=== PATIENT | male | born 1985 | race Caucasian/White ===

== ENCOUNTER 2024-05-15 11:30 | Outpatient (REF) | payer MEDICAID, SELFPAY ==
[2024-05-16 09:41] LABS: HBS Num1 15.21 mIU/mL (0-7.99); HBc Num1 0.09 S/CO (0.00-0.79); HBsAGNum1 0.43 S/CO (0.00-0.99); HIV AB/AG Nonreactive (Nonreactive); HIV Num 1 0.06 S/CO (0.00-0.99); Hepatitis A Antibody IgM 0.16 Index (0-0.79); Hepatitis B Core Antibody Nonreactive (Nonreactive); Hepatitis B Surface Antigen Negative (Negative); ~HepC Num1 0.16 S/CO (0.00-0.79); ~Hepatitis A Antibody IgM Nonreactive (Nonreactive); ~Hepatitis B Surface Antibody REACTIVE (Nonreactive); ~Hepatitis C Antibody Nonreactive (Nonreactive)
[2024-05-18 07:23] LABS: RPR Rapid Plasma Reagin NON-REACTIVE (NON-REACTIVE)
== END 2024-05-15 11:31 | disposition home or self-care (01) ==
LOC: HO.HHCL 11:30
PROVIDERS: Visit Provider Internal Medicine
DX: Z11.3 Encounter for screening for infections with a predominantly sexual mode of transmission (principal)
CPT/HCPCS: 36415; 86592; 86704; 86706; 86709; 86803; 87340; 87389

== ENCOUNTER 2024-06-20 09:55 | Outpatient (REF) | payer MEDICAID, SELFPAY ==
[2024-06-20 11:08] LABS: MANUAL DIFF FLAG NO
[2024-06-20 11:20] LABS: Basophils Percent Auto 0.4 % (0-2); Eosinophils Absolute Auto 0.1 X10*3/uL (0.0-0.4); Eosinophils Percent Auto 2.5 % (0-4); Hematocrit 39.9 % (42.0-52.0); Hemoglobin 13.6 g/dl (14.0-18.0); Imm Gran Abs Auto 0.03 X10*3/uL (0.00-0.03); Imm Gran Pct Auto 0.6 % (0.0-0.4); Lymphocytes Absolute Auto 1.5 X10*3/uL (1.2-4.9); Lymphocytes Percent Auto 30.6 % (20-40); Mean Corpuscular HGB Conc 34.1 g/dl (31.0-36.0); Mean Corpuscular Hemoglobin 29.8 pg (27.0-33.0); Mean Corpuscular Volume 87.3 fL (80.0-98.0); Mean Platelet Volume 11.4 fL (9.4-12.4); Monocytes Absolute Auto 0.4 X10*3/uL (0.1-1.2); Monocytes Percent Auto 7.9 % (2-11); Neutrophils Absolute Auto 2.8 x10*3/uL (2.0-8.3); Platelet Count 244 X10*3/uL (160-400); Red Blood Count 4.57 X10*6/uL (4.60-5.80); Red Cell Distribution Width 12.9 % (11.0-16.0); White Blood Count 4.8 X10*3/uL (4.8-10.8)
[2024-06-20 12:08] LABS: Alanine Aminotransferase 24 U/L (0-40); Albumin Level 4.1 g/dL (3.5-5.0); Alkaline Phosphatase 99 U/L (39-117); Anion Gap 8 (12-20); Aspartate Amino Transferase 19 U/L (5-37); Bilirubin Total 0.4 mg/dL (0.0-1.0); Blood Urea Nitrogen 11 mg/dL (9-16); Calcium 9.3 mg/dL (8.4-10.2); Carbon Dioxide 29 mmol/L (22-29); Chloride 106 mmol/L (96-108); Cholesterol 229 mg/dL (<200); Estimated Glomerular Filt Rate > 60; Glucose Random 85 mg/dL (60-115); HDL Cholesterol 42 mg/dL (>40); LDL Cholesterol Calculated 165 mg/dL (<100); Sodium 139 mmol/L (135-145); Total Protein 7.1 g/dL (6.5-8.0); Triglycerides 110 mg/dL (<150)
[2024-06-20 12:27] LABS: Estimated Average Glucose 108 mg/dL; Hemoglobin A1c % 5.4 % (<6.0)
[2024-06-20 14:22] LABS: Reflex LDLD? No
[2024-06-20 14:38] LABS: CT PCR NOT DETECTED (Not Detect.); NG PCR NOT DETECTED (Not Detect.)
== END 2024-06-20 09:56 | disposition home or self-care (01) ==
LOC: HO.HHCL 09:55
PROVIDERS: Visit Provider Internal Medicine
DX: Z00.00 Encounter for general adult medical examination without abnormal findings (principal)
CPT/HCPCS: 36415; 80053; 80061; 83036; 85025; 87491; 87591

== ENCOUNTER 2024-08-25 11:44 | Outpatient (REF) | payer MEDICAID, SELFPAY ==
[2024-08-25 13:42] LABS: MANUAL DIFF FLAG NO
[2024-08-25 13:51] LABS: Basophils Percent Auto 0.5 % (0-2); Eosinophils Absolute Auto 0.1 X10*3/uL (0.0-0.4); Eosinophils Percent Auto 2.3 % (0-4); Hematocrit 41.4 % (42.0-52.0); Hemoglobin 13.9 g/dl (14.0-18.0); Imm Gran Abs Auto 0.03 X10*3/uL (0.00-0.03); Imm Gran Pct Auto 0.5 % (0.0-0.4); Lymphocytes Absolute Auto 1.6 X10*3/uL (1.2-4.9); Lymphocytes Percent Auto 26.2 % (20-40); Mean Corpuscular HGB Conc 33.6 g/dl (31.0-36.0); Mean Corpuscular Hemoglobin 29.4 pg (27.0-33.0); Mean Corpuscular Volume 87.5 fL (80.0-98.0); Mean Platelet Volume 11.4 fL (9.4-12.4); Monocytes Absolute Auto 0.5 X10*3/uL (0.1-1.2); Monocytes Percent Auto 7.8 % (2-11); Neutrophils Absolute Auto 3.8 x10*3/uL (2.0-8.3); Neutrophils Percent Auto 62.7 % (45-73); Platelet Count 269 X10*3/uL (160-400); Red Blood Count 4.73 X10*6/uL (4.60-5.80); Red Cell Distribution Width 12.9 % (11.0-16.0)
[2024-08-25 16:22] LABS: Iron 69 mcg/dL (45-160); Percent Iron Saturation 27 % (15-50); Total Iron Binding Capacity 256 mcg/dL (228-428); Unsaturated Iron Binding 187 ug/dL
[2024-08-25 16:26] LABS: Ferritin 69 ng/mL (20-250)
[2024-08-25 17:09] LABS: Folate 12.6 ng/mL (> or = 4.0); Vitamin B12 486 pg/mL (200-900)
== END 2024-08-25 11:45 | disposition home or self-care (01) ==
LOC: HO.HHCL 11:44
PROVIDERS: Visit Provider Internal Medicine
DX: D64.9 Anemia, unspecified (principal)
CPT/HCPCS: 36415; 82607; 82728; 82746; 83540; 85025

== ENCOUNTER → 2025-05-21 20:30 | Outpatient (REF) | payer MEDICARE, MEDICAID, SELFPAY ==
--- OUTSIDE RECORDS SUMMARY | 2020-06-30 20:00 | XMS_ITS | Continuity of Care Document ---
Author Organization [facility] Address [address] [place] [place] [address] Phone Care Team Providers Care Teacher Preschool Name Role Phone Sandeep Walker OD Unavailable Unavailable Allergies, Adverse Reactions, Alerts Substance Reaction Status Criticality No Known Allergies Active No Inform ation Procedures Procedure Date No Charge OFFICE/OUTPATIENT VISIT, [facility] REFRACTION [place] Special Fit Advance Directives Directive Yes / No Effective Date File Name No Information Encounters Encounter Description Practice Location Reason(s) For Visit Diagnoses Date Provider Providers Copied on Encounter [facility] YANELY, [address], [place], [place], [id number], [place] tel:[phone] [facility] ESDRAS Contacts No Information Aaron Hopkins. [address], [place], [place], [facility], [place]. tel:[phone] [facility], [address], [place], [place], [id number], [place] tel:[phone] [facility] Contact lens followup (chief complaint) No Information Aaron Hopkins. [address], [place], [address], [place]. tel:[phone] OFFICE/OUTPAT IENT VISIT, NEW [facility] YANELY, [address], [place], [place], [id number], [place] tel:[phone] [facility] medical eye exam (chief complaint) Dry eye syndrome of bilateral lacrimal glandsVisual disturbance Aaron Hopkins. [address], [place], [address], [place]. tel:[phone] Family History Family Member Type Diagnosis Age At Onset Problem Family history of hypertensi on Payers Payer name Insurance type Covered republican ID Authoriza tion(s) No Information Social History Type Description Quantity Date Captured Comments Sex Male Smoking Status No Information Chief Complaint And Reason For Visit No Information Reason For Referral Reason For Referral No Information Plan Of Treatment Date Type Action Status Patient Education Health Information for You: MedlinePl~ completed History Of Present Illness Encounter Date Complaint History Of Prese nt Illness Contact lens followup The 35 yea r old male presents for evaluation of Contact lens followup and dilation. He says the while the right CL is comfortable, the left eye is uncomfortable as soon as he puts the lens in, no matter how long it settles. Vision overall in well. medical eye exam The 35 year old male presents for evaluation of medical eye exam and contact evaluation. ALLAN was 3 weeks ago, but he was not satisfied with their CL Fitting services. Was previously a new wearer, but had to be taught by his . He was given Biofinity Toric, but they get dry and uncomfortable after about 4 hours. Vision is well in them. No issues with eye pain or discomfort. Mention headaches, no flashes or floaters. Functional Status Date Functional Assessmen t No Information Instructions Date Instruction Additional Infor fely Return in 3 days wit h Sandeep Walker O.D. for Contact Lens follow-up, and dilate his eyes. Related to Visual disturbance Return in PRN as sym ptoms present. Return in 1 year with Sandeep Walker O.D. for Complete Exam. Related to Dry eye syndrome of bilateral lacrimal glands Impression/Plan Related to Dry e ye syndrome of bilateral lacrimal glands Impression/Plan Related to Visua l disturbance Assessments Type Assessment Date No Information Patient Care Teams Name Effective Dates (start - stop) Status Members No Information
--- OUTSIDE RECORDS SUMMARY | 2025-05-21 22:28 | XMS_ITS | Clinical Summary ---
Author Organization [facility] Address [address] [place] [address] Care Team Providers Care Faucet Polisher Name Role Phone Zeenat Clarke MD Primary Care Provide r Allergies No known active allergies Medications * This document contains information received from the source organization and may not represent a complete record from that organization. ibuprofen (IBU) 800 MG tablet Take 1 tablet by mouth with breakfast, with lunch, and with evening meal. 06/17/20 20 Active chlorhexidine (Periogard) 0.12 % solution Place 15 mL into mouth between cheek and gum after breakfast and after evening meal. place 15 milliliter by mucous membrane route 2 times every day in the mouth (after meals), swish in mouth for 30 seconds then spit out 06/17/20 20 Active albuterol (ProAir HFA) 108 (90 Base) MCG/ACT inhalerIndicatio ns:Mild intermittent asthma, unspecified whether complicated Inhale 2 puffs every 4 (four) hours if needed for shortness of breath. 18 g 1 12/06/19 23 Active QUEtiapine (SEROquel) 50 MG tabletIndication s:Insomnia, unspecified type Take 1 tablet (50 mg) by mouth at bedtime. 90 tablet 1 05/12/20 25 026 Active tretinoin (Retin-A) 0.025 % creamIndications :Other acne Apply topically at bedtime. 45 g 2 05/12/20 25 026 Active QUEtiapine (SEROquel) 50 MG tabletIndication s:Insomnia, unspecified type Take 1 tablet (50 mg) by mouth at bedtime. 90 tablet 1 08/25/20 24 025 Discontinued Active Problems Problem Noted Date Diagnosed Date Loud snoring 05/12/2025 Assessment & Plan (05/12/2025 12:12 PM EDT): Sleep studies are ordered today Other acne 05/12/2025 Dyslipidemia 08/25/2024 Assessment & Plan (05/12/2025 12:11 PM EDT): Counseling about healthy diet and exercise on today Lipid panel will be rechecked Assessment & Plan (08/25/2024 12:24 PM EST): Today extensive discussion was done about life style modifications I advise healthy diet (low calorie) and cardiovascular exercise Anemia 08/25/2024 Assessment & Plan (05/12/2025 12:11 PM EDT): CBC last time checked was noticed to have mild decrease of hemoglobin I will recheck it today with labs Assessment & Plan (08/25/2024 12:24 PM EST): Blood work ordered, patient will be contacted with [facility] maintenance 06/12/2024 PTSD (post-traumatic stress disorder) 05/15/2024 Assessment & Plan (05/12/2025 12:11 PM EDT): Counseling done he will continue with quetiapine 50 mg daily Assessment & Plan (08/25/2024 12:24 PM EST): C/w seroquel 50mg at bed time Assessment & Plan (06/12/2024 2:33 PM EDT): Counseling done [facility] called today I will continue to prescribe Seroquel 50mg daily [place] ordered Letter for emotional support pet will be provided Screening examination for STI 05/15/2024 Assessment & Plan (05/15/2024 12:03 PM EDT): Counseling done Condoms provided Hypersomnia 06/08/2023 Assessment & Plan (05/12/2025 12:11 PM EDT): Sleep study will be ordered today Assessment & Plan (06/08/2023 1:15 PM EDT): Sleep studies ordered today Snores 06/08/2023 Constipation 09/29/2022 Assessment & Plan (12/06/2022 12:47 PM EST): Continue docusate/senna, add Miralax Increase fiber and water intake. Insomnia 09/29/2022 Assessment & Plan (05/12/2025 12:12 PM EDT): Sleep hygiene counseling done I explained to patient 6 to 7 hours of sleep in an adult is a normal time for sleep He may continue with quetiapine 50 mg at bedtime Assessment & Plan (06/08/2023 1:15 PM EDT): We talk about sleep hygrine, no screens before bed time, no caffeine beverages I advise to increase hydroxyzine to 50mg at bed time Assessment & Plan (12/06/2022 12:46 PM EST): DC trazodone. Start mirtazapine 15-30 mg qhs Discussed with him regarding sleep hygiene, decreasing caffeine, recreational substances. FU in 1-2 months. Medical marijuana use 09/29/2022 Mild intermittent asthma 01/28/2018 Assessment & Plan (12/06/2022 12:46 PM EST): Occasional. Use Albuterol PRN. COvid and Influenza IZ are up to date. Encounters Date Type Department Care Team Description 05/12/2025 10:45 AM EDT Office Visit [facility] [address] [place] [address] Zeenat Clarke MD Dyslipidemia (Primary Dx); Insomnia, unspecified type; PTSD (post-traumatic stress disorder); Loud snoring; Hypersomnia; Other acne; Anemia, unspecified type 05/12/2025 Travel 05/11/2025 Telephone [facility] [address] [place] [address] Zeenat Clarke MD Chart Prep 03/03/2025 1:45 PM EDT Office Visit [facility] OPTOMET[facility] [address] [place] [address] Catalino, Charley, OD Regular astigmatism of both eyes (Primary Dx) from Last 3 Months Immunizations Immunization Administration Dates Next Due Hep B, adult 12/06/2022 Influenza injectable quadriv alent preservative free 10/04/2022,12/07/2021,09/18/2016 MMR 12/06/2022 Pfizer Covid-19 Vaccine 12+ Bivalent 10/04/2022 Tdap 09/18/2016 Family History Medical History Relation Name Comments Diabetes Mother Relation Name Status Comments Mother Social History Tobacco Use Types Packs/Day Years Used Date Smoking Tobacco: Never Passive Smoke Exposure: Never Smokeless Tobacco: Never Tobacco Cessation:Counseling Given: Not Answered Alcohol Use Standard Drinks/Week Comments Yes 0 (1 standard drink = 0.6 oz pur e alcohol) Ocacionally Depression Answer Date Recorded Patient Health Questionnaire-9 Score 0 05/12/2025 Patient Health Questionnaire-9 Score 0 05/12/2025 Last PHQ-9: Questionnaire Data Not on file 0 05/12/2025 Housing Stability Answer Date Recorded What is your housing situation today? I have eh katharine 05/12/[address] you li ve. Do you have problems with any of the following? None of the above 05/12/2025 Food Insecurity Answer Date Recorded Within the past 12 months, y ou worried that your food would run out before you got money to buy more: Never True 05/12/2025 Within the past 12 months,th e food you bought just didn't last and you didn't have enough money to get more: Never True Transportation Answer Date Recorded In the past 12 months, has l ack of transportation kept you from medical appts, meetings, work or from getting things needed for daily living? No 05/12/2025 Utilities Answer Date Recorded In the past 12 months, has t he electric, gas, oil or water company threatened to shut off services in your home? No 05/12/2025 Depression Answer Date Recorded Patient Health Questionnaire-2 Score 0 05/12/2025 Internet Access Answer Date Recorded Internet Access Q1 No 05/12/2025 Internet Access Q2 I do not want or need it 04/22 Sex and Gender Information Value Date Recorded Sex Assigned at Male 08/21/2022 10:14 AM EDT Legal Sex Male 10:14 AM EDT Gender Identity Male 08/21/2022 10:14 AM EDT Sexual Orientation Straight 08/21/2022 10 :14 AM EDT Last Filed Vital Signs Vital Sign Reading Time Taken Comments Blood Pressure 124/78 05/12/2025 10:44 AM EDT Pulse 88 05/12/2025 10:44 AM EDT Temperature 36.6 C (97.8 F) 05/12/2025 10:44 AM EDT Respiratory Rate 12 05/12/2025 10:44 AM EDT Oxygen Saturation 99% 05/12/2025 10:44 AM EDT Inhaled Oxygen Concentration - - Weight 75.6 kg (166 lb 9.6 oz) 05/12/2025 10:44 AM EDT Height 157.5 cm (5' 2 ) 05/12/2025 10:44 AM EDT Body Mass Index 30.47 05/12/2025 10:44 AM EDT Plan of Treatment Health Maintenance Due Date Last Done Comments Family Planning (PISQ) 2002 HPV Vaccines (1 - Male 3-dos e series) 2002 Pneumococcal Vaccine: Pediatrics (0 to 5 Years) and At-Risk Patients (6 to 49) Years (1 of 2 - PCV) 2006 Hepatitis B Vaccines (2 of 3 - 19+ 3-dose series) 01/03/2023 12/06/2022 COVID-19 Vaccine (4 - 2023-2 5 season) 2024 10/04/2022, 07/21/2021, 04/05/2021 Influenza Vaccine (#1) 2025 , 12/07/2021, 09/18/2016 Alcohol/Substance Use Screening 05/12/2026 05/12/2025 Depression Screening 05/12/2026 05/12/2025, 05/12/2025 Disability Screening 05/12/2026 05/12/2025 SDOH Screening 05/12/2026 05/12/2025 Tobacco Screening 05/12/2026 05/12/2025 DTaP/Tdap/Td Vaccines (2 - T d or Tdap) 09/18/2026 09/18/2016 Lipid Panel 06/20/2029 06/20/2024, 12/07/2021 Zoster Vaccines (1 of 2) 2037 RSV Patients and Patients Aged 60 years or older (1 - 1-dose 75+ series) 2062 HIV Screening Completed 05/15/2024, 12/07/2021 Hepatitis C Screening Completed 05/15/2024 , 12/07/2021 HIB Vaccines Aged Out No longer eligi ble based on patient's age to complete this topic Hepatitis A Vaccines Aged Out No long er eligible based on patient's age to complete this topic IPV Vaccines Aged Out No longer eligi ble based on patient's age to complete this topic Meningococcal B Vaccine Aged Out No l onger eligible based on patient's age to complete this topic Meningococcal Vaccine Aged Out No sera dominique eligible based on patient's age to complete this topic RSV under 20 months Aged Out No longe r eligible based on patient's age to complete this topic Rotavirus Vaccines Aged Out No longer eligible based on patient's age to complete this topic Procedures Procedure Name Priority Date/Time Associated Diagnosis Comments LIPID PANEL WITH REFLEX TO DIRECT LDL Routine 06/20/2024 10:02 AM EDT Health care maintenance HEPATITIS PANEL, GENERAL Routine 05/15/2024 12:00 AM EDT Screening examination for STI HIV 1/2 ANTIGEN/ANTIBODY, FOURTH GENERATION W/RFL Routine 05/15/2024 12:00 AM EDT Screening examination for STI from Last 3 Months or Most Recently Relevant to Health Maintenance Results * (ABNORMAL) Lipid Panel with Reflex to Direct LDL (06/20/2024 10:02 AM EDT) Triglycerides 110 <150 mg/dL [facility] Comment:Desirable Triglyceri de: less than 150 mg/dLBorderline High Triglyceride 150-199 mg/dLHigh Triglyceride: 200-499 mg/dLVery High Triglyceride: greater than or equal to 5OO mg/dL Cholesterol 229(H) <200 mg/dL [facility] Comment:Desirable Cholestero l: less than 200 mg/dLBorderline High Cholesterol: 200-239 mg/dLHigh Cholesterol: greater than 239 mg/dL LDL Cholesterol Calculated 165(H) <100 mg/dL [facility] Comment:Desirable LDL: less than 100 mg/dLNear Optimal/Above Optimal LDL: 110- 129 mg/dLBorderline High LDL: 130-159 mg/dLHigh LDL: 160-189 mg/dLVery High LDL: greater than or equal to 190 mg/dL HDL Cholesterol 42 >40 mg/dL [facility] Comment:Desirable HDL: great er than 40 mg/dL Note: This HDL assay may give artificially low results in patients with liver disease. Blood 06/20/2024 10:0 2 AM EDT 06/20/2024 11:03 AM EDT us Zeenat Patino MD LAB BLOOD ORDERABLES Final Result Performing Organization Address [facility] Co de Phone Number [facility] [address] [place] [phone] * Hepatitis A,B,C Profile (05/15/2024 12:00 AM EDT) Hepatitis A IgM Nonreactive Nonreactive [facility] Comment:IgM antibodies to GONSALEZ V not detected; does not exclude earlyacute or recovered HAV infection. ~Hepatitis B Surface Antibody REACTIVE Nonreactive [facility] Comment:REACTIVE: > 11.99 mI U/mL Hepatitis B Core Antibody Nonreactive Nonreactive [facility] Hepatitis C Antibody Nonreactive Nonreactive [facility] Comment:Antibodies to HCV no t detected; does not exclude early acuteHCV infection. Hepatitis B Surface Ag Negative Negative [facility] Blood Venous blood specimen / Unknown 05/15/2024 05/15/2024 Zeenat Patino MD LAB BLOOD ORDERABLES Final Result Performing Organization Address [facility] Co de Phone Number [facility] [address] [place] [phone] * HIV-1/2 Antigen and Antibodies, Fourth Generation, with Reflexes (05/15/2024 12:00 AM EDT) HIV AB/AG Nonreactive Nonreactive [facility] Comment:HIV-1 p24 Ag and/or HIV-1/HIV-2 Ab not detected.A test result that is nonreactive does not exclude thepossibility of exposure to or infection with HIV-1 and/orHIV-2. Nonreactive results in this assay for individualswith prior exposure to HIV-1 and/or HIV-2 may be due toantigen and antibody levels that are below the limit ofdetection of this assay.[employer] HIV Ag/Ab Combo assay result andsupplemental assay results should be interpreted inconjunction with the patient's clinical presentation,history and other laboratory results. If the results areinconsistent with clinical evidence, additional testing issuggested to confirm the result. Blood Venous blood specimen / Unknown 05/15/2024 05/15/2024 us Zeenat Patino MD LAB BLOOD ORDERABLES Final Result [facility] [address] [place], [place] [phone] from Last 3 Months or Most Recently Relevant to Health Maintenance Insurance [place] [address] [place] [address] [place] [address] [facility] Care Teams Faucet Polisher Relationship Specialty Start Date End Date Zeenat Clarke MD [address] [place] [phone] PCP - General Family Medicine 10/03/18
== END ==
LOC: HO.SL 20:30
PROVIDERS: PCP Internal Medicine; Visit Provider Internal Medicine
DX: R06.83 Snoring (principal); G47.10 Hypersomnia, unspecified; G47.61 Periodic limb movement disorder; Z79.899 Other long term (current) drug therapy
CPT/HCPCS: 95810

== ENCOUNTER → 2025-05-21 21:00 | Outpatient (BNV) | payer MEDICARE, MEDICAID, SELFPAY | PROVIDERS: PCP Internal Medicine; Visit Provider Internal Medicine | DX: R06.83 Snoring (principal) | CPT/HCPCS: 95810 ==

== ENCOUNTER 2025-05-26 12:28 | Outpatient (REF) | payer MEDICARE, MEDICAID, SELFPAY ==
--- OUTSIDE RECORDS SUMMARY | 2025-05-26 13:03 | XMS_ITS | Clinical Summary ---
Author Organization [facility] [facility] Address [address] [place] [address] Care Team Providers Care Obstetrics Scrub Nurse Name Role Phone Zeenat Clarke MD Primary [...] work ordered, patient will be contacted with [facility] maintenance 06/12/2024 PTSD (post-traumatic stress disorder) [...] Description 05/12/2025 10:45 AM EDT Office Visit [facility] [address] [place] [address] Zeenat Clarke MD Dyslipidemia (Primary Dx); Insomnia, unspecified type; PTSD (post-traumatic stress disorder); Loud snoring; Hypersomnia; Other acne; Anemia, unspecified type 05/12/2025 Travel 05/11/2025 Telephone [facility] [address] [place] [address] Zeenat Clarke MD Chart Prep 03/03/2025 1:45 PM EDT Office Visit [facility] OPTOMETRY [address] [place] [address] Catalino, Charley, OD Regular astigmatism of both [...] 10:02 AM EDT) Triglycerides 110 <150 mg/dL [facility] Comment:Desirable Triglyceri de: less than 150 mg/dLBorderline High Triglyceride 150-199 mg/dLHigh Triglyceride: 200-499 mg/dLVery High Triglyceride: greater than or equal to 5OO mg/dL Cholesterol 229(H) <200 mg/dL [facility] Comment:Desirable Cholestero l: less than 200 mg/dLBorderline High Cholesterol: 200-239 mg/dLHigh Cholesterol: greater than 239 mg/dL LDL Cholesterol Calculated 165(H) <100 mg/dL [facility] Comment:Desirable LDL: less than 100 mg/dLNear Optimal/Above Optimal LDL: 110- 129 mg/dLBorderline High LDL: 130-159 mg/dLHigh LDL: 160-189 mg/dLVery High LDL: greater than or equal to 190 mg/dL HDL Cholesterol 42 >40 mg/dL [facility] Comment:Desirable HDL: great er than 40 mg/dL Note: This HDL assay may give artificially low results in patients with liver disease. Blood 06/20/2024 10:0 2 AM EDT 06/20/2024 11:03 AM EDT us Zeenat Patino MD LAB BLOOD ORDERABLES Final Result Performing Organization Address [facility] Co de Phone Number [facility] [address] [place] [phone] * Hepatitis A,B,C Profile (05/15/2024 12:00 AM EDT) Hepatitis A IgM Nonreactive Nonreactive [facility] Comment:IgM antibodies to GONSALEZ V not detected; does not exclude earlyacute or recovered HAV infection. ~Hepatitis B Surface Antibody REACTIVE Nonreactive [facility] Comment:REACTIVE: > 11.99 mI U/mL Hepatitis B Core Antibody Nonreactive Nonreactive [facility] Hepatitis C Antibody Nonreactive Nonreactive [facility] Comment:Antibodies to HCV no t detected; does not exclude early acuteHCV infection. Hepatitis B Surface Ag Negative Negative [facility] Blood Venous blood specimen / Unknown 05/15/2024 05/15/2024 Zeenat Patino MD LAB BLOOD ORDERABLES Final Result Performing Organization Address [facility] Co de Phone Number [facility] [address] [place] [phone] * HIV-1/2 Antigen and Antibodies, Fourth Generation, with Reflexes (05/15/2024 12:00 AM EDT) HIV AB/AG Nonreactive Nonreactive [facility] Comment:HIV-1 p24 Ag and/or HIV-1/HIV-2 Ab not detected.A test result that is nonreactive does not exclude thepossibility of exposure to or infection with HIV-1 and/orHIV-2. Nonreactive results in this assay for individualswith prior exposure to HIV-1 and/or HIV-2 may be due toantigen and antibody levels that are below the limit ofdetection of this assay.[employer] HIV Ag/Ab Combo assay result andsupplemental assay results should be interpreted inconjunction with the patient's clinical presentation,history and other laboratory results. If the results areinconsistent with clinical evidence, additional testing issuggested to confirm the result. Blood Venous blood specimen / Unknown 05/15/2024 05/15/2024 us Zeenat Patino MD LAB BLOOD ORDERABLES Final Result [facility] [address] [place], [place] [phone] from Last 3 Months or Most Recently Relevant to Health [place] [id number] [facility] Care Teams Obstetrics Scrub Nurse Relationship Specialty Start Date End Date Zeenat Clarke MD [address] [place] [phone] PCP - General Family Medicine 10/03/18
[2025-05-26 13:32] LABS: MANUAL DIFF FLAG NO
[2025-05-26 13:49] LABS: Hematocrit 40.0 % (42.0-52.0); Hemoglobin 13.3 g/dl (14.0-18.0); Imm Gran Abs Auto 0.03 X10*3/uL (0.00-0.03); Imm Gran Pct Auto 0.6 % (0.0-0.4); Lymphocytes Absolute Auto 1.8 X10*3/uL (1.2-4.9); Mean Corpuscular HGB Conc 33.3 g/dl (31.0-36.0); Mean Corpuscular Hemoglobin 29.2 pg (27.0-33.0); Mean Corpuscular Volume 87.7 fL (80.0-98.0); NRBC Abs Auto 0.000 X10*3/uL (0.0-0.012); NRBC Pct Auto 0.0 /100WBC (0.0-0.2); Platelet Count 242 X10*3/uL (160-400); Red Blood Count 4.56 X10*6/uL (4.60-5.80); White Blood Count 5.4 X10*3/uL (4.8-10.8)
[2025-05-26 14:36] LABS: Alanine Aminotransferase 24 U/L (0-40); Albumin Level 4.3 g/dL (3.5-5.0); Alkaline Phosphatase 105 U/L (39-117); Anion Gap 11 (12-20); Aspartate Amino Transferase 22 U/L (5-37); Blood Urea Nitrogen 12 mg/dL (9-16); Calcium 8.9 mg/dL (8.4-10.2); Carbon Dioxide 27 mmol/L (22-29); Chloride 107 mmol/L (96-108); Cholesterol 229 mg/dL (<200); Estimated Glomerular Filt Rate > 60; HDL Cholesterol 42 mg/dL (>40); Potassium 4.0 mmol/L (3.3-5.1); Sodium 141 mmol/L (135-145); Total Protein 7.1 g/dL (6.5-8.0); Triglycerides 172 mg/dL (<150)
== END 2025-05-26 12:29 | disposition home or self-care (01) ==
LOC: HO.HHCL 12:28
PROVIDERS: PCP Internal Medicine; Visit Provider Internal Medicine
DX: E78.5 Hyperlipidemia, unspecified (principal); D64.9 Anemia, unspecified
CPT/HCPCS: 36415; 80053; 80061; 85025